=== PATIENT | male | born 2005 | race Caucasian/White ===

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

== ENCOUNTER 2025-04-03 11:14 | Emergency (ER) | payer OTHER, SELFPAY ==
--- NOTE | ~2025-04-03 | XR_ITS ---
XR lumbar spine 2-3V Indication: injury 3 days ago, back popped wednesday pain since x 2 days Comparison: None Findings: The vertebral heights are intact. No fracture or subluxation. The disc heights are intact. Soft tissues unremarkable Impression: No acute abnormality. Reviewed, dictated and finalized at location P. Impression: No acute abnormality.
[2025-04-03 11:37] VITALS: BP 120/68; PULSE 83; RESP 18; TEMP 36.9; O2SAT 100
--- NOTE | 2025-04-03 12:23 | ED_ITS ---
HPI - Back Pain/Injury General Chief Complaint: Back Pain/Injury Stated Complaint: BACK PAIN Time Seen by Provider: 04/03/25 12:05 Source: patient and RN notes reviewed Mode of arrival: ambulatory Limitations: no limitations History of Present Illness HPI Narrative: 20-year-old male presents Express Care complaining of low back pain for approximately 2-3 days. Patient said he was bitten on the lymph something up when he felt a pop in his low back followed by pain. Patient reports the pain is in the middle of his back and radiates into his left leg at times. Patient denies any saddle anesthesia, numbness, tingling, loss of bowel or bladder, or any other symptoms. Patient denies any back problems. Patient has been taking ibuprofen and Tylenol with some relief. Related Data Home Medications ?Medication ?Instructions ?Recorded ?Confirmed ?Last Taken ?Type tretinoin 0.05 % topical cream applic topical 10/23/24 Unknown History Allergies Allergy/AdvReac Type Severity Reaction Status Date / Time latex AdvReac Unknown Rash Verified 04/03/25 11:33 Review of Systems Review of Systems: CONSTITUTIONAL: Denies fever, chills, or sweats. EYES: Denies visual changes, redness, or discharge. ENT: Denies rhinorrhea, congestion, sore throat, or otalgia. CARDIOVASCULAR: Denies chest pain, palpitations, or edema. RESPIRATORY: Denies cough or dyspnea. GASTROINTESTINAL: Denies abdominal pain, nausea, vomiting, or diarrhea. GENITOURINARY: Denies dysuria or hematuria. SKIN: Denies rash or itching. MUSCULOSKELETAL: Positive for low back pain. Negative for joint pain, or myalgia. NEUROLOGIC: Denies headache, numbness, loss of bowel or bladder function, saddle anesthesia, or weakness. PSYCHIATRIC: Denies anxiety or depression. All other systems reviewed are negative, except as documented in HPI. [facility] Past Medical History Medical History Elevated transaminase level Bloating Weight loss ADD (attention deficit disorder) Celiac disease Hernia Kidney stones Surgical History Surgical History Hx of knee surgery Family History Family History Mother Thyroid disorder Grandparent Alcoholism Cancer Diabetes mellitus Hypertension Depression Grandparent Cancer Diabetes mellitus Hypertension Heart disease Social History Social History Smoking status: Never smoker Alcohol intake: never Substance use: never Substance use type: does not use Lack of Transportation: No Lack of Food: Never True Current Housing: I Have Housing Concerned About Future Housing: No Difficulty Paying Gas/Electric Bills: No Difficulty Paying for Meds: No Currently Unemployed: No Education: High School Diploma/GED Difficulty w/ Childcare or Family Care: No Living arrangements: with family Spiritual care concerns: No Comments At the time of my signature, I reviewed and agree with the nursing past medical, surgical, social, and family history. There is no relevant family history pertinent to the patient complaint. Exam Narrative: GENERAL: This is a well-nourished, well-developed adult, in no apparent distress. They are non ill-appearing, nontoxic appearing. HEAD: normocephalic, atraumatic. EYES: Sclera clear/white. Conjunctiva normal. Vision is grossly intact. Extraocular movements intact EARS: External ears normal, Hearing grossly intact. NOSE: External nose normal THROAT: Mucous membranes moist, NECK: Neck supple, non-tender without lymphadenopathy, masses or thyromegaly. CARDIOVASCULAR: Regular rate and rhythm without murmurs, gallops, or rubs. RESPIRATORY: Clear to auscultation. Breath sounds equal bilaterally. No wheezes, rales, or rhonchi. SKIN: warm, Dry, intact with no suspicious lesions or rash, good texture and turgor. NEURO: awake, alert, and oriented to person, place and time. There were no obvious focal neurologic abnormalities. EXTREMITIES: No joint tenderness, effusion, or edema noted. BACK: Nontender without deformity. No CVA tenderness. No cervical, thoracic, lumbar point tenderness, crepitus, or step-offs. Pain Elicited through turning and twisting of the trunk. Course Course Emergency Course: Portions of this record may have been created with voice recognition software Level of Care: Express Care Visit Vital Signs Vital signs: Vital Signs Temperature 98.4 F 04/03/25 11:37 Pulse Rate 83 04/03/25 11:37 Respiratory Rate 18 04/03/25 11:37 Blood Pressure 120/68 04/03/25 11:37 Pulse Oximetry 100 04/03/25 11:37 Temperature 98.4 F 04/03/25 11:37 Pulse Rate 83 04/03/25 11:37 Respiratory Rate 18 04/03/25 11:37 Blood Pressure 120/68 04/03/25 11:37 Pulse Oximetry 100 04/03/25 11:37 Reviewed MDM - Back Pain/Injury MDM Narrative Medical decision making narrative: X-ray lumbar back negative for any fracture or acute findings. Likely low back pain with sciatica. Prescribed course of prednisone along with muscle relaxers as needed for spasms. Discussed physical exam findings. Advised supportive measures and signs/symptoms to go to the ER. Pt is appropriate for outpt treatment and f/u. Differential Diagnosis Differential diagnosis: Likely lumbar radiculopathy, sciatica and strain of lumbar region Imaging Data Radiologist's impression: ITS Impressions Lumbar Spine X-Ray 04/03/25 12:02 Impression: No acute abnormality. Critical Care Time Critical Care Time Critical Care Time: No Discharge Plan Discharge Clinical Impression: Low back pain Qualifiers: Chronicity: acute Back pain laterality: unspecified Sciatica presence: with sciatica Sciatica laterality: sciatica of left side Qualified Code(s): M54.42 - Lumbago with sciatica, left side Patient Disposition: Home Condition: Stable Instructions: Acute Low Back Pain (ED), Lower Back Exercises (ED) Additional Instructions: The x-ray of your lumbar back is negative for any fractures or acute findings. Take the muscle relaxer as directed. Do not drive or operate heavy machine, or work while taking the medication as it can make you drowsy. You may take ibuprofen 600 mg to 800 mg every 6-8 hours. Do not exceed more than 800 mg of ibuprofen per dose. Do not exceed more than 3200 mg ibuprofen in a day. You may take up to 1000 mg Tylenol every 6-8 hours. Do not exceed 1000 mg per dose, do exceed more than 4000 mg of Tylenol in a day. Please follow-up with your primary care provider if pain persist especially after 10 days. Rest. Avoid pushing, pulling, lifting --running or excessive walking-- or anything that worsens the symptoms You may try stretching your lower back or doing spinal decompression to help with symptoms. Go to the emergency department if you develop any numbness or tingling to your groin, weakness in your legs, or any loss of bowel or bladder function. Patient Language: Upper Sorbian Prescriptions: New prednisone 20 mg tablet 40 mg PO DAILY 5 Days Qty: 10 0RF methocarbamol 750 mg tablet 750 mg PO TID PRN (Reason: muscle spasms) Qty: 12 0RF No Action tretinoin 0.05 % cream TOPICAL dicyclomine 20 mg tablet See Rx Instructions .ROUTE .COMPLEX Qty: 270 3RF Dose Instruction: TAKE 1 TABLET BY MOUTH THREE TIMES A DAY NEEDED FOR ABDOMINAL PAIN Rx Instructions: TAKE 1 TABLET BY MOUTH THREE TIMES A DAY NEEDED FOR ABDOMINAL PAIN atomoxetine [Strattera] 18 mg capsule 18 mg PO DAILY Qty: 90 0RF Rx Instructions: Take one tablet daily to improve focus atomoxetine 25 mg capsule 25 mg PO DAILY Qty: 90 1RF Follow-up/Referrals: Jodie Javier NP [Primary Care Provider, Family Practice] Stand Alone Forms: Work/School Release IP Time of Disposition: 12:20
== END 2025-04-03 12:22 | disposition home or self-care (01) ==
PROVIDERS: PCP Nurse Practitioner Family
DX: M54.42 Lumbago with sciatica, left side (principal)
CPT/HCPCS: 72100; 99213; G0463